=== PATIENT | male | born 1990 | race Caucasian/White ===

== ENCOUNTER 2019-05-05 19:55 | Emergency (ER) | payer OTHER ==
[~2019-05-05] VITALS: Ht 177.8 cm; Wt 72.6 kg
[2019-05-05 20:00] VITALS: BP 145/77
[2019-05-05] MEDS ORDERED: Dexamethasone 4mg/ml vial IVP ONE (20:00)
--- NOTE | 2019-05-05 20:00 | NUR ---
ER Nurse Note: Pt brought in by ambulance c/o throat and tongue swelling, face swelling, wheezes after eating unk food around 1940. Per EMS, pt is allergic to mushroom but did not eat them. EMS established an 18 gauge IV on LT AC; infusing 500 mL of fluids. 2 rounds of epi and diphenhydramine given. Pt on 2L NC satting >95% O2.
--- NOTE | 2019-05-05 20:29 | Emergency Room Report ---
History of Present Illness General Chief Complaint: Allergic Reaction Source: Patient, EMS Present Illness HPI 28-year-old male presents with shortness of breath, throat closing at approximately 7:50 PM, patient ate some food where he put powdered flavoring and afterwards he started having shortness of breath, EMS was called, they gave him epinephrine IM which helped resolve some of his symptoms however he had continued shortness of breath, he states his throat swelling has resolved, severity was severe patient presents for evaluation Allergies: Coded Allergies: Mushroom (Verified Allergy, Severe, 05/05/19) Patient History Past Medical History: see triage record Reviewed Nursing Documentation: PMH: Agreed; PSxH: Agreed Nursing Documentation-PMH Past Medical History: No Stated History Review of Systems All Other Systems: negative except mentioned in HPI Physical Exam Vital Signs Date Time Temp Pulse Resp B/P (MAP) Pulse Ox O2 Delivery O2 Flow Rate FiO2 05/05/19 19:49 98.4 89 19 145/77 (99) 97 Nasal Cannula 2.0 Sp02 EP Interpretation: reviewed, normal General Appearance: alert, moderate distress Head: normocephalic, atraumatic Eyes: bilateral eye PERRL, bilateral eye EOMI ENT: uvula midline, moist mucus membranes Neck: supple, thyroid normal, supple/symm/no masses Respiratory: no accessory muscle use, decreased breath sounds, wheezing Cardiovascular #1: normal peripheral pulses, no edema, no gallop, no murmur, tachycardia Gastrointestinal: non tender, soft, no guarding, no rebound Musculoskeletal: normal inspection Neurologic: alert, oriented x3 Psychiatric: mood/affect normal Skin: diaphoresis - Generalized rash on body, red, warm/dry Medical Decision Making Diagnostic Impression: Primary Impression: Anaphylactic reaction Qualified Codes: T78.2XXA - Anaphylactic shock, unspecified, initial encounter ER Course 28-year-old male presents most likely with an anaphylactic reaction to the flavoring that he placed on his food, patient already received epinephrine with us slow resolution of his symptoms, patient feels better, patient will receive Benadryl, will provide Decadron as well as fluids Reevaluation 10:05 PM patient is completely asymptomatic Patient is practice airway wheezing is resolved patient is tolerating good p.o. Disposition home with return precautions, patient will throughout that food additionally patient will have an EpiPen education on EpiPen usage discussed EKG Diagnostic Results EKG Time: 19:56 EP Interpretation: Sinus tachycardia, rate 114, QTc 441, no acute ST elevations , normal axis Rhythm Strip Diag. Results Rhythm Strip Time: 20:29 EP Interpretation: yes Rate: 99 Rhythm: NSR, no PVC's, no ectopy Last Vital Signs Date Time Temp Pulse Resp B/P (MAP) Pulse Ox O2 Delivery O2 Flow Rate FiO2 05/05/19 19:49 98.4 89 19 145/77 (99) 97 Nasal Cannula 2.0 Disposition: HOME, SELF-CARE Condition: Stable Scripts Epinephrine (Epipen 2-Henry) 0.3 Mg/0.3 Ml Auto.injct 0.3 MG IM ONCE PRN for anaphylaxis, #1 EA Prov: Woo Ward MD 05/05/19 Referrals: [facility] Patient Instructions: Anaphylactic Reaction, [id number] Additional Instructions: The patient was provided with discharge instructions, notified to follow-up with a primary care doctor and or specialist in the next 24-48 hours, and to return to the ED if they have worsening of their symptoms. Please note that this report is being documented using [employer] technology. This can lead to erroneous entry secondary to incorrect interpretation by the dictating instrument. Woo Ward MD May 05, 2019 20:29
[2019-05-05] MEDS: Ipratropium 0.02% Inh Soln 2.5ml UD HHN SCH ×2 (20:30→21:12)
[2019-05-05] MEDS: Albuterol ud Inhalation HHN SCH ×3 (21:04→21:13)
[2019-05-05] MEDS ORDERED: EPIPEN 2-P0.3 MG/0.3 IM (22:06)
[2019-05-05 22:15] VITALS: BP 136/72
--- NOTE | 2019-05-05 22:15 | NUR ---
ED Nurse Note: Pt cleared by health care Provider for discharge. Discharge instructions/prescription was given and explained to pt and verbalized understanding of teachings. Informed pt to follow up with primary care physcian within one week. All medical deviecs such as ID band and IV site removed. Pt is AAO x4, ambulatory and left with all personal belongings. Pt denies shortness of breath, chest pain. No difficulty swollowing and able to keep liquids down.
== END 2019-05-05 22:15 | disposition home or self-care (01) ==
LOC: EDBD 19:55 → EMR 22:15
DX: T78.2XXA Anaphylactic shock, unspecified, initial encounter (principal); R00.0 Tachycardia, unspecified; X58.XXXA Exposure to other specified factors, initial encounter; Y92.9 Unspecified place or not applicable
CPT/HCPCS: 96361; 96374; 99284; J1100; J7030